=== PATIENT | female | born 2000 | race Caucasian/White ===

== ENCOUNTER 2020-02-27 08:15 | Emergency (ER) | payer BC, SELFPAY ==
[~2020-02-27] VITALS: Ht 157.5 cm; Wt 49.0 kg
[2020-02-27 08:50] VITALS: BP_SYST 114
[2020-02-27] MEDS ORDERED: DOXY50TA9 PO (08:50)
== END 2020-02-27 09:45 | disposition home or self-care (01) ==
LOC: SED 08:15
DX: Z20.828 Contact with and (suspected) exposure to other viral communicable diseases (principal)
CPT/HCPCS: 71045; 81025; 99284; U0003; C9803-CS